=== PATIENT | male | born 1965 | race Caucasian/White ===

== ENCOUNTER 2016-10-26 18:04 | Emergency (ER) | payer BC ==
[2016-10-26 19:29] VITALS: BP 162/93
[2016-10-26] MEDS ORDERED: BSS OPTH.SOL* BTL ONE (20:34)
[2016-10-26] MEDS ORDERED: Fluorescein Sodium TOPICAL* 1 MG TEST ONE (20:34)
[2016-10-26] MEDS ORDERED: Tetracaine 0.5% OPTH.SOL 4 ML* 1 DROP BTL ONE (20:34)
--- NOTE | 2016-10-26 20:36 | UC ---
Eye Complaint HPI - HPI Summary HPI Summary: R eye redness, irritation, and light-sensitivity since yesterday. Has been painting and caulking overhead, has occasional FB sensation but it is not sustained. - History of Current Complaint Chief Complaint: UCEye Stated Complaint: RIGHT EYE (FB?) Time Seen by Provider: 10/26/16 20:10 Hx Obtained From: Patient Onset/Duration: Gradual Onset, Lasting Days Timing: Constant Severity Initially: Mild Severity Currently: Moderate Location of Injury: Conjunctiva Character: Dull, Foreign Body Sensation Aggravating Factor(s): Light Associated Signs And Symptoms: Positive: Photophobia, Drainage (Clear) - Allergies/Home Medications Allergies/Adverse Reactions: Allergies Allergy/AdvReac Type Severity Reaction Status Date / Time No Known Allergies Allergy Verified 10/26/16 19:23 PMH/Surg Hx/FS Hx/Imm Hx Previously Healthy: Yes - Surgical History Surgical History: Yes Surgery Procedure, Year, and Place: hemorrhoids removed - Family History Known Family History: Negative: Blood Disorder - Social History Lives: With Family Alcohol Use: Rare Substance Use Type: None Smoking Status (MU): Never Smoked Tobacco Review of Systems Constitutional: Negative Skin: Negative Eyes: Drainage, Eye Redness, Photophobia ENT: Nasal Discharge Respiratory: Negative Cardiovascular: Negative Gastrointestinal: Negative Genitourinary: Negative Motor: Negative Neurovascular: Negative Musculoskeletal: Negative Neurological: Negative Psychological: Negative All Other Systems Reviewed And Are Negative: Yes Physical Exam Triage Information Reviewed: Yes Appearance: Well-Appearing, No Pain Distress, Well-Nourished Vital Signs: Initial Vital Signs Temp 99.0 F 10/26/16 19:23 Pulse 74 10/26/16 19:23 Resp 18 10/26/16 19:23 BP 162/93 10/26/16 19:23 Pulse Ox 99 10/26/16 19:23 Vital Signs Reviewed: Yes Eye Exam: Other - PERRL Eyes: Positive: Conjunctiva Inflamed, Other: - fluorescein uptake in R central cornea, in approx 2pm position ENT: Positive: Hearing grossly normal, Pharynx normal, Nasal drainage Dental Exam: Normal Neck exam: Normal Neck: Positive: Supple, Nontender, No Lymphadenopathy Respiratory Exam: Normal Respiratory: Positive: Chest non-tender, Lungs clear, Normal breath sounds, No respiratory distress, No accessory muscle use Cardiovascular Exam: Normal Cardiovascular: Positive: RRR, No Murmur Musculoskeletal Exam: Normal Neurological Exam: Normal Psychological Exam: Normal Skin Exam: Normal Eye Complaint Course/Dx - Differential Dx/Diagnosis Provider Diagnoses: corneal abrasion. Elevated blood pressure secondary to discomfort Discharge - Discharge Plan Condition: Stable Disposition: HOME Patient Education Materials: Corneal Abrasion (ED) Referrals: Rohan Holt MD [Medical Doctor] - 2 Days
[2016-10-26] MEDS ORDERED: Ciprofloxacin 0.3% OPTH.SOL* 2.5 ML BTL RIGHT EYE ONE (20:44)
== END 2016-10-26 20:56 | disposition home or self-care (01) ==
LOC: UCCORT 18:04
DX: S05.01XA Injury of conjunctiva and corneal abrasion without foreign body, right eye, initial encounter (principal); X58.XXXA Exposure to other specified factors, initial encounter; Y93.89 Activity, other specified; Y92.9 Unspecified place or not applicable; R03.0 Elevated blood-pressure reading, without diagnosis of hypertension
CPT/HCPCS: 99212; A9270-GY; G0463